=== PATIENT | male | born 1970 | race Caucasian/White ===

== ENCOUNTER 2023-08-27 03:33 | Emergency (ER) | payer OTHER ==
[2023-08-27] MEDS ORDERED: IPRATROPIUM-ALBUTEROL 3 ML NEB INHALATION STA ×2 (03:44→05:09)
[2023-08-27] MEDS ORDERED: methylPREDNISolone SOD SUCCI 125 MG/2 ML VIAL IV STA (03:44)
[2023-08-27] MEDS ORDERED: SODIUM CHLORIDE 0.9% 1,000 ML IV STA (03:44)
[2023-08-27 03:51] VITALS: TEMP 98.6
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
[2023-08-27 04:33] LABS: INR 0.9 (<1.2); Partial Thromboplastin Time 27.5 sec (22.0-30.0); Prothrombin Time 9.7 sec (10.0-12.5)
[2023-08-27 04:36] LABS: ALT 36 U/L (4-49); AST 31 U/L (17-59); African American GFR (CKD) >90 (>60 ml/min/1.73 sqM); Albumin 4.1 g/dL (3.5-5.0); Alkaline Phosphatase 81 U/L (38-126); Anion Gap 7 mmol/L; Blood Urea Nitrogen 16 mg/dL (9-20); Calcium 9.6 mg/dL (8.4-10.2); Carbon Dioxide 30 mmol/L (22-30); Chloride 101 mmol/L (98-107); Glucose 107 mg/dL (74-99); Magnesium 1.9 mg/dL (1.6-2.3); Non-African American GFR(CKD) >90 (>60 ml/min/1.73 sqM); Potassium 4.7 mmol/L (3.5-5.1); Sodium 138 mmol/L (137-145); Total Bilirubin 0.7 mg/dL (0.2-1.3); Total Protein 6.5 g/dL (6.3-8.2)
[2023-08-27 04:37] LABS: Basophils % (A) 1 %; Eosinophils # (A) 0.1 k/uL (0-0.7); Eosinophils % (A) 1 %; HCT 45.8 % (39.0-53.0); HGB 15.8 gm/dL (13.0-17.5); Lymphocytes # (A) 1.1 k/uL (1.0-4.8); Lymphocytes % (A) 15 %; MCH 31.8 pg (25.0-35.0); MCHC 34.5 g/dL (31.0-37.0); MCV 92.2 fL (80.0-100.0); Mean Platelet Volume 7.8; Monocytes # (A) 0.7 k/uL (0-1.0); Monocytes % (A) 9 %; Neutrophils # (A) 5.3 k/uL (1.3-7.7); Neutrophils % (A) 73 %; Platelet Count 225 k/uL (150-450); RBC 4.96 m/uL (4.30-5.90); RDW 13.5 % (11.5-15.5); WBC 7.3 k/uL (3.8-10.6)
[2023-08-27 04:44] LABS: NT-Pro-B-Type Natriuretic Pept <20 pg/mL
[2023-08-27 05:41] LABS: RBC Morphology Normal
[2023-08-27] MEDS ORDERED: AZITHROMYCIN 500 MG TAB PO STA (05:42)
[2023-08-27 06:22] VITALS: BP 142/87; PULSE 98; RESP 20
--- NOTE | 2023-08-27 06:26 | XR ---
EXAMINATION TYPE: XR chest 2V DATE OF EXAM: 08/27/2023 4:29 AM CLINICAL INDICATION:Male, 52 years old with history of difficulty breathing; [facility] COMPARISON: Chest radiographs from 08/27/2023 TECHNIQUE: XR chest 2V Frontal and lateral views of the chest. FINDINGS: Lungs/Pleura: There is flattening of the diaphragm with increased lucency of the lungs. No evidence o f pneumothorax, pleural effusion or focal consolidation. Pulmonary vascularity: Unremarkable. Heart/mediastinum: Cardiomediastinal silhouette is unremarkable. Musculoskeletal: No acute osseous pathology. IMPRESSION: 1. No acute cardiopulmonary disease process. 2. COPD changes.
== END 2023-08-27 06:16 | disposition home or self-care (01) ==
LOC: EC 03:33
DX: J40 Bronchitis, not specified as acute or chronic (principal); J44.9 Chronic obstructive pulmonary disease, unspecified; F17.200 Nicotine dependence, unspecified, uncomplicated; Z20.822 Contact with and (suspected) exposure to COVID-19
CPT/HCPCS: 36415; 94640 ×2; 93005; 83880; 80053; 83605; 83735; 84484; 85025; 85610; 85730; 87636; 71046; 99285; 96374; 96361; J2930